=== PATIENT | male | born 1965 | race Caucasian/White ===

== ENCOUNTER → 2019-12-27 | Outpatient (CLI) | payer BC, OTHER ==
[~2019-12-27] VITALS: Ht 188 cm; Wt 103.4 kg
[~2019-12-27] MED LIST: MELOXICAM7.5 MG PO
[2019-12-27 08:00] VITALS: BP 148/84
--- NOTE | 2019-12-27 08:03 | NUR ---
Pain Clinic Assessment: 1. History of Osteoarthritis: Not Applicable Not Applicable History of Rheumatoid Arthritis: Not Applicable 2. Height: 6 ft. 2 in. 188.0 cm. Weight: 228.0 lb. oz. 103.420 kg. Patient's BMI: 29.3 3. Vital Signs: BP: 148/84 Pulse: 89 Resp: 16 Temp: 02 Sat: 97 ECG Mon: 4. Pain Intensity: 3-4 AVERAGE 5. Fall Risk: Dizziness: N Needs help standing or walking: N Fallen in the last 3 months: N Fall risk comments: 6. Patient on Blood Thinner: None 7. History of Hypertension: N 8. Opioid Therapy greater than 6 weeks: N Opiate Contract Signed: 9. Risk Assessment Tool Provided: low-3 10. Functional Assessment Tool: 11. Recreational Drug Use: Never Drug Type: Tobacco Use: Never Smoker Tobacco Type: Amount or Packs/day: How Many Years: Alcohol Use: Yes Frequency: Weekly Quant: 4-5
--- NOTE | 2020-01-01 14:07 | HPC ---
[facility] [place] [address] PAIN MANAGEMENT CONSULTATION Name: SHAUNAKEENA Raul [id number] Admission: 12/27/19 Attend Phys: Sunny Cardenas DO Discharge: Date of : 61 Report #: [id number] THIS REPORT FOR: cc: HARSHIL CROOK Physician not on staff Sunny Cardenas DO ~ DATE OF SERVICE: 12/27/2019 REFERRING PHYSICIAN: Dr. Nick Arango. CHIEF COMPLAINT: Low back pain, left lower extremity pain and paresthesias. HISTORY OF PRESENT ILLNESS: As you know, the patient is a very pleasant 54-year-old male who returns today in followup visit to undergo first in a series of lumbar epidural injections under fluoroscopic guidance. The patient indicates pain level today of around 3-4/10. He describes the pain as constant, burning, shooting, cramping and numbness, exacerbated with sitting and standing, improves with bending over and stretching. He returns today for the first in a series of lumbar epidural injections under fluoroscopic guidance. ALLERGIES: PENICILLIN. CURRENT MEDICATIONS: Meloxicam 7.5 mg once a day, Flonase 1 spray each nostril per day. SOCIAL HISTORY: The patient denies tobacco, IV or illicit drug use. Admits to occasional alcohol beverage. He is employed, working, not receiving workmen's compensation nor is he trying to obtain disability benefits. Unaccompanied today. IMAGING: No new imaging available. PHYSICAL EXAMINATION: VITAL SIGNS: Blood pressure 148/84, pulse is 89, respiratory rate 16 and unlabored. The patient is 97% on room air, height 6 feet 2 inches tall, weight 228 pounds, BMI calculated 29.3. GENERAL: Well-developed, well-nourished, well-hydrated 54-year-old male appearing stated age. He is placing current pain score at around 3-4/10. HEENT: Normocephalic, atraumatic. Pupils equal, round and reactive. Speech is fluent. EXTREMITIES: Show no clubbing, no cyanosis, no edema. MUSCULOSKELETAL: Lower extremity strength equal and symmetrical 5/5, intact to light touch from L1 through S2 dermatomes. Seated straight leg raising negative. Supine straight leg raising positive on the left. Nino's test is negative. Gait: Mildly antalgic favoring left lower extremity over right. [facility] [address] [place] [address] PAIN MANAGEMENT CONSULTATION Name: KEENA VILLATORO Room #: REG Nalini Patterson#: [id number] Admission: 12/27/19 Attend Phys: Sunny Cardenas DO Discharge: Date of : 61 Report #: [id number] ASSESSMENT: 1. Symptomatic lumbar radiculopathy. 2. Displacement of lumbar intervertebral disk with radiculopathy. 3. Neural foraminal stenosis of lumbar spine. 4. Lumbar degeneration. PLAN: 1. The patient returns today in followup visit to undergo lumbar epidural injection under fluoroscopic guidance. He has established today's appointment to undergo the procedure as he can leave today, return to his work and participate only in light activity. The patient has been advised risks and benefits of a lumbar epidural injection. These risks include but are not necessarily limited to bleeding, bruising, infection, worsening pain, no relief of pain, also risk of temporary or permanent muscle weakness, temporary or permanent nerve damage, possible paralysis and . The patient states understood and wished to proceed. 2. No medication changes made at today's visit. The patient will continue current medical therapy as previously prescribed. 3. We will see the patient back in followup visit in 31 days per his insurer to review efficacy of the epidural injection provided today and determine if next in the series of epidural injections might be recommended. PROCEDURE NOTE DESCRIPTION OF PROCEDURE: L5-S1 left paramedian epidural steroid injection under fluoroscopic guidance. This is the first procedure of the first series that the patient is undergoing. After obtaining written consent, the patient was taken back to the fluoroscopy suite, placed in a prone position with pillow under the abdomen to decrease lumbar lordosis. The skin overlying the lumbosacral area was then prepped and draped in aseptic fashion. The L5-S1 vertebral interspace was then identified by AP fluoroscopy. The skin and subcutaneous tissue overlying the target site of injection was anesthetized with 3 mL 1% lidocaine. A 20-gauge 3-1/2 inch Tuohy needle was then advanced under fluoroscopic guidance towards the epidural space using a left paramedian approach. The epidural space was identified using loss of resistance to air technique. After negative aspiration for heme or cerebrospinal fluid, a total of 1 mL of Omnipaque was injected. A lumbar epidurogram was confirmed using both AP and lateral fluoroscopy. After negative aspiration for heme or cerebrospinal fluid, 5 mL of a solution containing 2 mL 40 mg per mL, 80 mg total triamcinolone along with 3 mL of lidocaine 1% was injected in increments. Contrast spread was noted in posterior epidural space. The needle was then retracted approximately half way [address] [address] PAIN MANAGEMENT CONSULTATION Name: KEENA VILLATORO Room #: REG AMIE Lutz#: [id number] Admission: 12/27/19 Attend Phys: Sunny Cardenas DO Discharge: Date of : 61 Report #: [id number] and needle tract flushed with 1 mL of 1% lidocaine. Needle was then removed. There were no apparent sensory or motor deficits in the lower extremity following the procedure. A sterile bandage was placed over the injection site. The heart rate, pulse, oximetry and blood pressure were continuously monitored after the procedure. There were no apparent complications. The patient tolerated the procedure well and was carefully escorted to the recovery room in stable condition. There were no apparent complications. After meeting discharge criteria, the patient was then discharged home. <ELECTRONICALLY SIGNED> By: Sunny Cardenas DO 01/01/20 1407 [id number] Sunny Cardenas DO /nt
== END | disposition home or self-care (01) ==
LOC: PAIN 06:50
PROVIDERS: ATTEND Anesthesiology Pain Medicine
DX: M51.16 Intervertebral disc disorders with radiculopathy, lumbar region (principal); M48.061 Spinal stenosis, lumbar region without neurogenic claudication; Z88.0 Allergy status to penicillin

== ENCOUNTER → 2020-01-29 | Outpatient (CLI) | payer BC, OTHER ==
[~2020-01-29] VITALS: Ht 188 cm; Wt 100.7 kg
[2020-01-29 08:40] VITALS: BP 135/92
--- NOTE | 2020-01-29 09:03 | NUR ---
Pain Clinic Assessment: 1. History of Osteoarthritis: Not Applicable History of Rheumatoid Arthritis: Not Applicable 2. Height: 6 ft. 2 in. 188.0 cm. Weight: 222.0 lb. oz. 100.699 kg. Patient's BMI: 28.5 3. Vital Signs: BP: 135/92 Pulse: 92 Resp: 16 Temp: 02 Sat: 100 ECG Mon: 4. Pain Intensity: NO PAIN/NUMBNESS 5. Fall Risk: Dizziness: N Needs help standing or walking: N Fallen in the last 3 months: N Fall risk comments: 6. Patient on Blood Thinner: None 7. History of Hypertension: N 8. Opioid Therapy greater than 6 weeks: N Opiate Contract Signed: 9. Risk Assessment Tool Provided: low-3 10. Functional Assessment Tool: 11. Recreational Drug Use: Never Drug Type: Tobacco Use: Never Smoker Tobacco Type: Amount or Packs/day: How Many Years: Alcohol Use: Yes Frequency: Weekly Quant: 1-4
--- NOTE | 2020-01-30 11:01 | HPC ---
[facility] [place] [address] PAIN MANAGEMENT CONSULTATION Name: VILLATOROKEENA Raul Room #: REG [facility] Yesenia#: [id number] Admission: 01/29/20 Attend Phys: Sunny Cardenas DO Discharge: Date of : 61 Report #: [id number] THIS REPORT FOR: cc: HARSHIL CROOK Physician not on staff Sunny Cardenas DO ~ DATE OF SERVICE: 01/29/2020 CHIEF COMPLAINT: Low back pain, left lower extremity pain with paresthesias. HISTORY OF PRESENT ILLNESS: As you know, the patient is a 54-year-old male who has had a longstanding history of low back pain, left lower extremity pain that began somewhere between 2-5 years ago. There was no inciting injury or trauma. He was referred to our clinic by his Neurosurgeon, Dr. Nick Arango to undergo lumbar epidural injections under fluoroscopic guidance. The patient was seen at our clinic last month and underwent the first in a series of lumbar epidural injections. He reports improvement in symptoms of 70-80%. Unfortunately, he continues to experience numbness and tingling in the left lower extremity. He states his pain is exacerbated with standing and playing golf, improves with bending over, stretching and previous epidural injection. He returns today in followup visit to undergo second in the series of epidural injections in hopes of improving pain. He denies new injury or trauma. He also denies any medications that would preclude the patient from undergoing the epidural injection today. He has not been exposed to COVID-19 nor does he have symptoms of COVID-19 based on his report today. ALLERGIES: PENICILLIN. CURRENT MEDICATIONS: Meloxicam 7.5 mg once a day. SOCIAL HISTORY: The patient denies tobacco, alcohol, IV or illicit drug use. He is working, not receiving workmen's compensation, unaccompanied today. IMAGING: No new imaging available. PHYSICAL EXAMINATION: VITAL SIGNS: Blood pressure 135/92, pulse 92, respiratory rate 16 and unlabored. The patient is 100% on room air, height 6 feet 2 inches tall, weight 222 pounds, BMI calculated 28.5. GENERAL: Well-developed, well-nourished, well-hydrated 54-year-old male. He appears his stated age. He is in no acute distress, awake, alert and oriented x 3. Current pain score is up to 2/10, but mainly reports numbness, no significant pain. HEENT: Normocephalic, atraumatic. Pupils equal, round and reactive. Speech is fluent. [address] [address] PAIN MANAGEMENT CONSULTATION Name: KEENA VILLATORO Raul Room #: REG [facility].#: [id number] Admission: 01/29/20 Attend Phys: Sunny Cardenas DO Discharge: Date of : 61 Report #: [id number] EXTREMITIES: Show no clubbing, no cyanosis, and no edema. MUSCULOSKELETAL: Lower extremity strength equal and symmetrical 5/5. Muscle bulk and tone is equal and symmetrical in comparing left lower extremity to right. Seated straight leg raising .negative. Supine straight leg raising positive on the left. Nino's test is negative. ASSESSMENT: 1. Symptomatic lumbar radiculopathy. 2. Displacement of lumbar intervertebral disk with radiculopathy. 3. Lumbosacral spondylosis with radiculopathy. 4. Neural foraminal stenosis of the lumbar spine. 5. Facet arthropathy of the lumbar spine. PLAN: 1. The patient returns today in followup visit having noted significant pain improvement 70-80% improvement in overall symptoms with the epidural injection provided at the last visit. Unfortunately, he continues to experience numbness and tingling and paresthesias in the left lower extremity. He returns today to undergo next in the series of epidural injections in hopes of improving pain. The patient has been advised of the risks and benefits of this procedure. These risks include but are not necessarily limited to bleeding, bruising, infection, worsening of pain, no relief of pain and also risk of temporary or permanent muscle weakness, temporary or permanent nerve damage, possible paralysis and . The patient states understood and wished to proceed. 2. No medication changes made at today's visit. The patient will continue current medical therapy as prior prescribed. 3. We will see the patient back in followup visit on an as needed basis for possible next in the series of lumbar epidural injections. We are hopeful the patient will see good and prolonged benefit with today's procedure. DESCRIPTION OF PROCEDURE: L5-S1 left paramedian epidural steroid injection under fluoroscopic guidance. This is the second procedure of the first series that the patient is undergoing. After obtaining written consent, the patient was taken back to the fluoroscopy suite, placed in a prone position with pillow under the abdomen to decrease lumbar lordosis. The skin overlying the lumbosacral area was then prepped and draped in aseptic fashion. The L5-S1 vertebral interspace was then identified by AP fluoroscopy. The skin and subcutaneous tissue overlying the target site of injection was anesthetized with 3 mL 1% lidocaine. A 20-gauge 3-1/2 inch Tuohy needle was then advanced under fluoroscopic guidance towards the epidural space using a left paramedian approach. The epidural space was identified using loss of resistance to air technique. After negative aspiration for heme or cerebrospinal fluid, a total of 1 mL of Omnipaque was [facility] [address] [place] [address] PAIN MANAGEMENT CONSULTATION Name: KEENA VILLATORO Room #: REG AMIE Patterson#: [id number] Admission: 01/29/20 Attend Phys: Sunny Cardenas DO Discharge: Date of : 61 Report #: [id number] injected. A lumbar epidurogram was confirmed using both AP and lateral fluoroscopy. After negative aspiration for heme or cerebrospinal fluid, 5 mL of a solution containing 2 mL 40 mg per mL, 80 mg total triamcinolone along with 3 mL lidocaine 1% was injected in increments. Contrast spread was noted posterior epidural space. The needle was then retracted approximately half way and needle tract flushed with 1 mL of lidocaine. Needle was then removed. There were no apparent sensory or motor deficits in the lower extremity following the procedure. A sterile bandage was placed over the injection site. The heart rate, pulse, oximetry and blood pressure were continuously monitored after the procedure. There were no apparent complications. The patient tolerated the procedure well and was carefully escorted to the recovery room in stable condition. There were no apparent complications. After meeting discharge criteria, the patient was then discharged home. <ELECTRONICALLY SIGNED> By: Sunny Cardenas DO 01/30/20 1101 [id number] Sunny Cardenas, DO /nt
== END | disposition home or self-care (01) ==
LOC: PAIN 06:49
PROVIDERS: ATTEND Anesthesiology Pain Medicine
DX: M51.16 Intervertebral disc disorders with radiculopathy, lumbar region (principal); M47.27 Other spondylosis with radiculopathy, lumbosacral region; M47.26 Other spondylosis with radiculopathy, lumbar region; M48.061 Spinal stenosis, lumbar region without neurogenic claudication; G89.29 Other chronic pain; Z98.890 Other specified postprocedural states; Z79.899 Other long term (current) drug therapy; Z88.0 Allergy status to penicillin